=== PATIENT | male | born 1990 | race Two or more races ===

== ENCOUNTER 2021-12-25 22:26 | Emergency (ER) | payer OTHER ==
[~2021-12-25] VITALS: Ht 195.6 cm; Wt 88.9 kg
== END 2021-12-26 01:22 | disposition home or self-care (01) ==
LOC: ER 22:26
DX: S29.9XXA Unspecified injury of thorax, initial encounter (principal); W19.XXXA Unspecified fall, initial encounter; Y93.9 Activity, unspecified; Y92.9 Unspecified place or not applicable; S70.312A Abrasion, left thigh, initial encounter

== ENCOUNTER 2022-03-02 09:32 | Outpatient (CLI) | payer OTHER | END 2022-03-02 09:39 | disposition home or self-care (01) | LOC: TOM 09:32 | DX: M54.89 Other dorsalgia (principal); S22.39XA Fracture of one rib, unspecified side, initial encounter for closed fracture ==

== ENCOUNTER 2022-12-22 08:38 | Outpatient (CLI) | payer OTHER | END 2022-12-22 08:45 | disposition home or self-care (01) | LOC: TOM 08:38 | DX: S22.31XB Fracture of one rib, right side, initial encounter for open fracture (principal) ==